=== PATIENT | male | born 1975 | race American Indian/Alaskan Native ===

== ENCOUNTER 2021-04-17 13:09 | Outpatient (CLI) | payer OTHER ==
--- NOTE | 2021-04-17 14:54 | XRay Report ---
CHEST PA AND LATERAL VIEWS INDICATION: COUGH. COMPARISON: None. FINDINGS: Support devices: None. Heart: Within normal limits. Lungs/Pleura: No acute pulmonary or pleural findings. IMPRESSION: 1. No acute findings. Signer Name: Maynor Galeas MD Signed: 04/17/2021 2:50 PM Workstation Name: [id number]
--- NOTE | 2021-04-17 14:54 | XRay Report ---
XR sinuses 3+V INDICATION: SINUS CONGESTION. COMPARISON: No relevant prior imaging study available. FINDINGS: No acute skeletal abnormality. Paranasal sinuses are clear without air-fluid level. IMPRESSION: 1. No acute findings. Signer Name: Maynor Galeas MD Signed: 04/17/2021 2:49 PM Workstation Name: [id number]
--- NOTE | 2021-04-17 14:54 | XRay Report ---
ABDOMEN 1 VIEW(S) INDICATION / CLINICAL INFORMATION: AB PAIN/ATTENTION TO LIVER AND SPLEEN. COMPARISON: None available. FINDINGS: TUBES / LINES: None. BOWEL GAS PATTERN: No significant abnormality. FREE AIR / EXTRALUMINAL GAS: None seen. ADDITIONAL FINDINGS: No significant additional findings. IMPRESSION: 1. No significant abnormality. Signer Name: Maynor Galeas MD Signed: 04/17/2021 2:50 PM Workstation Name: [email or web address]
== END 2021-04-17 13:10 | disposition home or self-care (01) ==
LOC: XRAY 13:09
PROVIDERS: ATTEND Internal Medicine Hematology & Oncology
DX: S32.03 Fracture of third lumbar vertebra (principal); R05.9 Cough, unspecified; R10.9 Unspecified abdominal pain
CPT/HCPCS: 70220; 71046; 74018